=== PATIENT | female | born 1995 | race Caucasian/White ===

== ENCOUNTER 2018-01-23 15:27 | Inpatient (IN) | payer BC ==
--- NOTE | 2018-01-23 16:04 | ED ---
Psychiatric Complaint - HPI Summary HPI Summary: This patient is a 22 year old F presenting to [facility] after she was sent by a counselor at [facility] with a chief complaint of SI that has been worse today. Pt states that this has been happening for a while and that she is not on medication. She denies a plan for suicide but has bad thoughts when she looks at things. LNMP was about a month ago and she is not sexually active. - History Of Current Complaint Chief Complaint: [facility]entalHealth Time Seen by Provider: 01/23/18 15:35 Hx Obtained From: Patient Onset/Duration: Still Present, Worse Since Timing: Constant Severity Initially: Mild Severity Currently: Moderate Has Suicidal: Reports: Thoughts. Denies: With A Plan, Demonstrates Gesture - Allergies/Home Medications Allergies/Adverse Reactions: Allergies Allergy/AdvReac Type Severity Reaction Status Date / Time No Known Allergies Allergy Verified 01/23/18 16:02 Home Medications: Home Medications NK [No Home Medications Reported] 01/23/18 [History Confirmed 01/23/18] PMH/Surg Hx/FS Hx/Imm Hx Endocrine/Hematology History: Reports: Other Endocrine/Hematological Disorders - Eczema Denies: Hx Diabetes, Hx Thyroid Disease Cardiovascular History: Denies: Hx Auto Implanted Cardiovert Defib, Hx Congenital Heart Disease, Hx Coronary Artery Disease, Hx Deep Vein Thrombosis Respiratory History: Denies: Hx Chronic Obstructive Pulmonary Disease (COPD), Hx Lung Cancer, Hx Pleural Effusion, Hx Pneumonia History: Denies: Hx Acute Renal Failure, Hx Benign Prostatic Hyperplasia, Hx Chronic Renal Failure Infectious Disease History: No Infectious Disease History: Denies: Traveled Outside the [place] in Last 30 Days - Family History Known Family History: Negative: Respiratory Disease, Seizure Disorder - Social History Occupation: Student Alcohol Use: Rare Hx Substance Use: No Substance Use Type: Reports: None Hx Tobacco Use: No Smoking Status (MU): Never Smoked Tobacco Review of Systems Negative: Fever Positive: Other - SI All Other Systems Reviewed And Are Negative: Yes Physical Exam - Summary Physical Exam Summary: Appearance: Well-appearing, Well-nourished, lying in bed comfortably Skin: Warm, dry, no obvious rash Eyes: sclera anicteric, no conjunctival pallor ENT: mucous membranes moist, pharynx appears normal Neck: Supple, nontender Respiratory: Clear to auscultation, no signs of respiratory distress Cardiovascular: Normal S1, S2. No murmurs. Normal distal pulses in tibial and radial bilaterally. Abdomen: Soft, nontender, normal active bowel sounds present Musculoskeletal: Normal, Strength/ROM Intact Neurological: A&Ox3, awake and alert, mentation is normal, speech is fluent and appropriate Psychiatric: depressed affect Triage Information Reviewed: Yes Vital Signs On Initial Exam: Initial Vitals Temp Pulse Resp BP Pulse Ox 98.0 F 60 16 115/83 99 01/23/18 15:53 01/23/18 15:53 01/23/18 15:53 01/23/18 15:53 01/23/18 15:53 Vital Signs Reviewed: Yes Diagnostics - Vital Signs Vital Signs Temp Pulse Resp BP Pulse Ox 01/23/18 15:53 98.0 F 60 16 115/83 99 - Laboratory Result Diagrams: 01/23/18 16:16 01/23/18 16:16 Lab Statement: Any lab studies that have been ordered have been reviewed, and results considered in the medical decision making process. Course/Dx - Course Assessment/Plan: This patient is a 22 year old F presenting to [facility] after she was sent by a counselor at [facility] with a chief complaint of SI that has been worse today. Pt states that this has been happening for a while and that she is not on medication. She denies a plan for suicide but has bad thoughts when she looks at things. LNMP was about a month ago and she is not sexually active. Bloodwork obtained. After MHE by Dr. Márquez the patient will be a voluntary admit. The patient will be admitted for unspecified depressive disorder. The patient is agreeable with this plan. - Differential Dx/Clinical Impression Provider Diagnosis: Depressive disorder Discharge - Sign-Out/Discharge Documenting (check all that apply): Patient Departure - admitted All imaging exams completed and their final reports reviewed: No Studies - Discharge Plan Condition: Guarded Disposition: PSYCHIATRIC FACILITY[place] [place] Billing Disposition and Condition Condition: GUARDED Disposition: Psychiatric Facility [facility] [place] - Attestation Statements Document Initiated by Scribe: Yes Documenting Scribe: Salty Hong Provider For Whom Scribe is Documenting (Include Credential): Tomer Olmstead MD Scribe Attestation: Salty Angeles scribed for Tomer Olmstead MD on 01/24/18 at 0853. Scribe Documentation Reviewed: Yes Provider Attestation: The documentation as recorded by the scribe, Salty Hong accurately reflects the service I personally performed and the decisions made by me, Tomer Olmstead MD
[2018-01-23 16:43] LABS: ABS Basophils 0 10^3/ul (0-0.2); ABS Eosinophils 0 10^3/ul (0-0.6); ABS Lymphocytes 1.4 10^3/ul (1.0-4.8); ABS Monocytes 0.5 10^3/ul (0-0.8); ABS Neutrophils 4.3 10^3/ul (1.5-7.7); ABS Nucleated RBC 0 10^3/ul; Eosinophil % 0.8 % (0-6); Hematocrit 39 % (35-47); Hemoglobin 13.2 g/dl (12.0-16.0); Lymphocyte % 22.2 % (25-47); Mean Corpuscular HGB Conc 34 g/dl (31-36); Mean Corpuscular Hemoglobin 30 pg (27-31); Mean Corpuscular Volume 88 fL (80-97); Mean Platelet Volume 7.9 um3 (7.4-10.4); Nucleated Red Blood Cells % 0; Platelet Count 211 10^3/ul (150-450); Red Blood Count 4.38 10^6/ul (4.00-5.40); Red Cell Distribution Width 13 % (10.5-15); White Blood Count 6.3 10^3/ul (3.5-10.8)
[2018-01-23 17:05] LABS: EGFR Non-African American 75.9 (>60)
[2018-01-23] MEDS ORDERED: Acetaminophen TAB* 325 MG PO PRN (21:24)
[2018-01-23] MEDS ORDERED: Al Hydrox/Mg Hydrox/Simet LIQ* 30 ML UDC PO PRN (21:24)
[2018-01-23] MEDS ORDERED: LORazepam TAB(*) 1 MG PO PRN (21:25)
[2018-01-24] MEDS: Vitamin THERAPEUTIC TAB PO SCH (10:11)
[2018-01-24] MEDS ORDERED: hydrOXYzine HCL TAB* 25 MG PO PRN (18:10)
--- NOTE | 2018-01-24 18:36 | HP ---
H&P (Free Text) History and Physical: JUSTIFICATION FOR ADMISSION: Patient presented to emergency room with suicidal ideation and plan, worsening depression and irritability. He requires inpatient psychiatric admission in order to provide treatment and stabilization as he is a danger to himself. 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 Patient was admitted to inpatient unit for worsening of her anxiety symptoms including excessive worries, restlessness, tremors, palpitation and unable to function appropriately due to that. Patient reports her perfectionism makes her anxiety worse especially related to her academic performance. But reportedly patient has been caring less towards her studies, losing interest in things, isolating self, decrease in energy with feelings of worthlessness and worsening of her suicidal thoughts. Patient was worried about her safety at home hence approached counselor at [facility] and then presented to E.D for worsening of her symptoms. Patient has been compliant with her therapy on weekly to biweekly basis. Patient reportedly has been not finding interest in things that she used to enjoy in the past. Patient reports no manic symptoms. Patient reports no psychotic symptoms. Patient denied any suicidal or homicidal ideation on the unit. Patient continued to exhibit behavior that is in control following staffs redirection. PAST PSYCHIATRIC HISTORY: Patient has history of no inpatient psychiatric hospitalization. Patient has history of outpatient psychiatric treatment by a therapy for stress and anxiety since the beginning of college years but routinely since last spring. Patients was started on medications as needed for anxiety by a psychiatrist at [employer] this spring but did not report much improvement hence dropped out but continued with therapy. Patient has history of suicidal thoughts but no attempt or plan. Patient has history of no homicidal threats, no intent or attempt. Patient has history of no aggressive and agitated behavior when decompensates. No access to firearm reported. SUBSTANCE ABUSE HISTORY: Patient reports no substance abuse history. Urine toxicology was negative. PAST MEDICAL HISTORY: No active medical problems ALLERGIES: NKA FAMILY PSYCHIATRIC HISTORY: Patient has family history of depression and suicidal attempt in her grandmother. Patient reports other family members with depression but not formally diagnosed and treated. FAMILY/PSYCHOSOCIAL HISTORY: Patient currently lives with a room mate. Patient is single. Patient education level is currently magdaleno at [employer] in Biomedical Engineering. Patient was born in [place] then moved to [place] when she was a baby but most of her life was raised in [place] by her parents. Patient support system includes her family but do not feel close to her fiends. REVIEW OF SYSTEMS: Patients review of symptoms was negative for any physical complaint. Vitals were reviewed. Patients ED physical exam was reviewed which is grossly normal with no active medical problem. Appearance: Well-appearing, Well-nourished, lying in bed comfortably Skin: Warm, dry, no obvious rash Eyes: sclera anicteric, no conjunctival pallor ENT: mucous membranes moist, pharynx appears normal Neck: Supple, nontender Respiratory: Clear to auscultation, no signs of respiratory distress Cardiovascular: Normal S1, S2. No murmurs. Normal distal pulses in tibial and radial bilaterally. Abdomen: Soft, nontender, normal active bowel sounds present Musculoskeletal: Normal, Strength/ROM Intact Neurological: A&Ox3, awake and alert, mentation is normal, speech is fluent and appropriate MENTAL STATUS EXAMINATION: Appearance: appear stated age, calm and cooperative, making fair eye contact, fair hygiene, fair grooming Behavior: cooperative, in control Gait: normal Abnormal motor activity: none Speech: normal tone and volume, normal rate and rhythm Mood: "I feel worthless at times" Affect: depressed, but reactive Thought process: coherrent Thought Content: Suicidal/Homicidal ideation: denied at time of evaluation but feel unsafe at home with suicidal thoughts Delusions: none Obsessions: none Phobia: none Perceptual disturbance: none Attention: fair Orientation: grossly intact Concentration: fair Memory: fair Insight: fair Judgment: fair Impulse control: fair IMPRESSION: Patient with history of anxiety attacks and depression. Patient currently admitted due to worsening of her symptoms with sucidial thougths and was worried about her safety at home. Patient has also struggled with her perfectionism and has limited social [place] or support. Patient is a danger to self if discharged hence will be observed and stabilized on inpatient unit with medication adjustments and therapy. DIAGNOSES: Major Depression, Single episode; Anxiety Disorder unspecified PLAN: Admit to U on Q 15 min observation. Patient is full code. Patient is on voluntary admission status Integrate patient into the milieu individual and group psychotherapy MMPI and psychological consult with Dr. Wilson. Socal work consult for therapy and discharge planning Will hold family meeting with parents to increase Data base, if possible. Patient gave informed consent to start the following medications: Remeron was started at 15 mg PO QHS for sleep, depression and anxiety. Patient was also staretd on Hydroxyzine 50 mg Po Q6HRS PRN anxiety and depression. Will continue to monitor and f/u for improvement and side effects. Kelsea Rivera MD Attending Psychiatrist
[2018-01-24] MEDS: Mirtazapine TAB* 15 MG PO SCH (21:27)
[2018-01-25] MEDS: Vitamin THERAPEUTIC TAB PO SCH (10:27)
[2018-01-25] MEDS: Mirtazapine TAB* 15 MG PO SCH (21:41)
[2018-01-26] MEDS: Vitamin THERAPEUTIC TAB PO SCH (09:42)
--- NOTE | 2018-01-26 16:20 | PN ---
Subjective - Subjective Date of Service: 01/26/18 Service Type: 87459 Hosp care 15 min low complexity Subjective: Judith locke to be depressed and suicidal. Says she had suicidal thoughts this morning but no plan to act on that. Otherwise remains the same with regards to anxiety, sleep and appetite. Low profile on the unit and participating fine in unit activities, pleasant in interactions. Objective - Appearance Appearance: Healthy Appearing Dysmorphic Features: No Hygiene: Normal Grooming: Fairly Well Kept - Behavior Psychomotor Activities: Normal Exhibits Abnormal Movement: No - Attitude and Relatedness Attitude and Relatedness: Cooperative Eye Contact: Good - Speech Quality: Unpressured Latencies: Normal Quantity: Appropriate - Mood Patient's Decription of Mood: "Good" - Affect Observed Affect: Non-labile - Thought Process Patient's Thought Process: Coherent, Goal Directed Thought Content: Yes Passive Wish, No Suicidal Planning, No Homicidal Ideation, No Paranoid Ideation - Sensorium Experiencing Hallucinations: No, Sensorium is Clear Type of Hallucinations: Visual: No, Auditory: No, Command: No - Level of Consciousness Level of Consciousness: Alert Orientation: Yes Intact, Yes Orientated to Time, Yes Orientated to Place, Yes Orientated to Person - Impulse Control Impulse Control: Intact - Insight and Judgement Insight and Judgement: Fair - Group Participation Particating in Group Activities: Yes - Medication Management Medication Management Adherence: Yes Assessment - Assessment Merits Inpatient Hospitalization: For Immediate Safety, For Stabilization Clinical Impression: Still depressed, anxious and suicidal. Continue hospitalization. Plan - Plan Treatment Plan: Name: JUDITH GAITAN Birthdate: 1995 [id number] Continued Medication Management: Continue Outpt Medication Medications: Current Medications Acetaminophen (Tylenol Tab*) 650 mg PO Q4H PRN PRN Reason: PAIN or TEMP > 101 F Al Hydrox/Mg Hydrox/Simethicone (Maalox Plus*) 30 ml PO Q4H PRN PRN Reason: INDIGESTION Hydroxyzine HCl (Atarax Tab*) 25 mg PO Q6H PRN PRN Reason: ANXIETY Mirtazapine (Remeron Tab*) 15 mg PO BEDTIME [facility] Last Admin: 01/25/18 21:41 Dose: 15 mg Multivitamins (Theragran Tab*) 1 tab PO DAILY [facility] Last Admin: 01/26/18 09:42 Dose: Not Given - Discharge Plan Discharge Plan: Outpatient Follow Up Outpatient Program: [facility]
[2018-01-26] MEDS: Mirtazapine TAB* 15 MG PO SCH (21:43)
[2018-01-27] MEDS: Vitamin THERAPEUTIC TAB PO SCH (09:46)
--- NOTE | 2018-01-27 12:07 | PN ---
Subjective - Subjective Date of Service: 01/27/18 Service Type: 27810 Hosp care 25 min moderate complexity Subjective: Patient was seen by self, discussed with treatment team, chart was reviewed. Patient has been compliant with her medications, no reported side effects. Patient reports sleeping better and is able to think better and positive. Patient reported having a a moment of suicidal thought over the weekend and was able to distract easily. Patient reported some improvement in her depressive symptoms. Patient sleeping has improved. Patient eating has been fair. Patient was offered routine nutritional consult for dietary habit and advice but was not interested. Patient has been cooperative with staff. Patient behavior has been in control. Patient mood was less anxious but still dysphoric but reactive and reports improvement. Patient has been reporting no suicidal or homicidal ideation today. No psychotic symptoms of delusions or hallucinations. Objective - Appearance Appearance: Healthy Appearing Dysmorphic Features: No Hygiene: Normal Grooming: Fairly Well Kept - Behavior Psychomotor Activities: Normal Exhibits Abnormal Movement: No - Attitude and Relatedness Attitude and Relatedness: Cooperative Eye Contact: Fair - Speech Quality: Unpressured Latencies: Normal Quantity: Appropriate - Mood Patient's Decription of Mood: "better" - Affect Observed Affect: Depressed - but improving and more reactive Affect Consistent with: Dysphoria - Thought Process Patient's Thought Process: Coherent, Goal Directed Thought Content: No Passive Wish, No Suicidal Planning, No Homicidal Ideation, No Paranoid Ideation - Sensorium Type of Hallucinations: Visual: No, Auditory: No, Command: No - Level of Consciousness Level of Consciousness: Alert Orientation: Yes Intact, Yes Orientated to Time, Yes Orientated to Place, Yes Orientated to Person - Impulse Control Impulse Control: Intact - Insight and Judgement Insight and Judgement: Fair - Group Participation Particating in Group Activities: Yes - Medication Management Medication Management Adherence: Yes Assessment - Assessment Merits Inpatient Hospitalization: For Immediate Safety, For Stabilization, For Discharge Planning Inpatient DSM-V Dx: F32.9 Clinical Impression: Patient with history of anxiety attacks and depression. Patient currently admitted due to worsening of her symptoms with suicidal thoughts and was worried about her safety at home. Patient has also struggled with her perfectionism and anxiety triggering her symptoms. Patient has limited social [place]ne[place] or support. Patient is a danger to self if discharged hence will be observed and stabilized on inpatient unit with medication adjustments and therapy. Plan - Plan Treatment Plan: Name: ROGER GAITAN Birthdate: 1995 [id number] - Patient continues to be hospitalized due to recent suicidal thoughts with plan , anxiety and depression. - Patient's medications were adjusted after informed consent with continuation of Remeron at 15 mg PO QHS and Benadryl as needed for anxiety. - Patient will be monitored for improvement and side effects. Risk and benefits were discussed. - Patient was encouraged to continue his participation in the milieu, group and individual therapy. Medications: Current Medications Acetaminophen (Tylenol Tab*) 650 mg PO Q4H PRN PRN Reason: PAIN or TEMP > 101 F Al Hydrox/Mg Hydrox/Simethicone (Maalox Plus*) 30 ml PO Q4H PRN PRN Reason: INDIGESTION Hydroxyzine HCl (Atarax Tab*) 25 mg PO Q6H PRN PRN Reason: ANXIETY Mirtazapine (Remeron Tab*) 15 mg PO BEDTIME [facility] Last Admin: 01/26/18 21:43 Dose: 15 mg Multivitamins (Theragran Tab*) 1 tab PO DAILY [facility] Last Admin: 01/27/18 09:46 Dose: Not Given
[2018-01-27] MEDS: Mirtazapine TAB* 15 MG PO SCH (21:33)
[2018-01-28 08:43] VITALS: BP 113/67
[2018-01-28] MEDS: Vitamin THERAPEUTIC TAB PO SCH (10:40)
--- NOTE | 2018-01-28 13:31 | DS ---
Subjective - Subjective Service Types: 14[address] [facility] Day Mgmt simple under 30 min Discharge Date: 01/28/18 Subjective: JUSTIFICATION FOR ADMISSION: Patient presented to emergency room with suicidal ideation and plan, worsening depression and irritability. He requires inpatient psychiatric admission in order to provide treatment and stabilization as he is a danger to himself. 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 Patient was admitted to inpatient unit for worsening of her anxiety symptoms including excessive worries, restlessness, tremors, palpitation and unable to function appropriately due to that. Patient reports her perfectionism makes her anxiety worse especially related to her academic performance. But reportedly patient has been caring less towards her studies, losing interest in things, isolating self, decrease in energy with feelings of worthlessness and worsening of her suicidal thoughts. Patient was worried about her safety at home hence approached counselor at [facility] and then presented to [facility] for worsening of her symptoms. Patient has been compliant with her therapy on weekly to biweekly basis. Patient reportedly has been not finding interest in things that she used to enjoy in the past. Patient reports no manic symptoms. Patient reports no psychotic symptoms. Patient denied any suicidal or homicidal ideation on the unit. Patient continued to exhibit behavior that is in control following staffs redirection. PAST PSYCHIATRIC HISTORY: Patient has history of no inpatient psychiatric hospitalization. Patient has history of outpatient psychiatric treatment by a therapy for stress and anxiety since the beginning of college years but routinely since last spring. Patients was started on medications as needed for anxiety by a psychiatrist at [employer] this spring but did not report much improvement hence dropped out but continued with therapy. Patient has history of suicidal thoughts but no attempt or plan. Patient has history of no homicidal threats, no intent or attempt. Patient has history of no aggressive and agitated behavior when decompensates. No access to firearm reported. SUBSTANCE ABUSE HISTORY: Patient reports no substance abuse history. Urine toxicology was negative. PAST MEDICAL HISTORY: No active medical problems ALLERGIES: NKA FAMILY PSYCHIATRIC HISTORY: Patient has family history of depression and suicidal attempt in her grandmother. Patient reports other family members with depression but not formally diagnosed and treated. FAMILY/PSYCHOSOCIAL HISTORY: Patient currently lives with a room mate. Patient is single. Patient education level is currently magdaleno at [employer] in Biomedical Engineering. Patient was born in [place] then moved to [place] when she was a baby but most of her life was raised in [place] by her parents. Patient support system includes her family but do not feel close to her fiends. REVIEW OF SYSTEMS: Patients review of symptoms was negative for any physical complaint. Vitals were reviewed. Patients ED physical exam was reviewed which is grossly normal with no active medical problem. Appearance: Well-appearing, Well-nourished, lying in bed comfortably Skin: Warm, dry, no obvious rash Eyes: sclera anicteric, no conjunctival pallor ENT: mucous membranes moist, pharynx appears normal Neck: Supple, nontender Respiratory: Clear to auscultation, no signs of respiratory distress Cardiovascular: Normal S1, S2. No murmurs. Normal distal pulses in tibial and radial bilaterally. Abdomen: Soft, nontender, normal active bowel sounds present Musculoskeletal: Normal, Strength/ROM Intact Neurological: A&Ox3, awake and alert, mentation is normal, speech is fluent and appropriate MENTAL STATUS EXAMINATION ON ADMISSION: Appearance: appear stated age, calm and cooperative, making fair eye contact, fair hygiene, fair grooming Behavior: cooperative, in control Gait: normal Abnormal motor activity: none Speech: normal tone and volume, normal rate and rhythm Mood: "I feel worthless at times" Affect: depressed, but reactive Thought process: coherrent Thought Content: Suicidal/Homicidal ideation: denied at time of evaluation but feel unsafe at home with suicidal thoughts Delusions: none Obsessions: none Phobia: none Perceptual disturbance: none Attention: fair Orientation: grossly intact Concentration: fair Memory: fair Insight: fair Judgment: fair Impulse control: fair DIAGNOSES ON ADMISSION: Major Depression, Single episode; Anxiety Disorder unspecified DIAGNOSES ON DISCHARGE: Major Depression, Single episode; Anxiety Disorder unspecified Objective - Appearance Appearance: Healthy Appearing Dysmorphic Features: No Hygiene: Normal Grooming: Fairly Well Kept - Behavior Psychomotor Activities: Normal Exhibits Abnormal Movement: No - Attitude and Relatedness Attitude and Relatedness: Cooperative Eye Contact: Fair - Speech Quality: Unpressured Latencies: Normal Quantity: Appropriate - Mood Patient's Decription of Mood: "Fine" - Affect Observed Affect: Fair Affect Consistent with: Euthymia - Thought Process Patient's Thought Process: Coherent Thought Content: No Passive Wish, No Suicidal Planning, No Homicidal Ideation, No Paranoid Ideation - Sensorium Experiencing Hallucinations: No, Sensorium is Clear Type of Hallucinations: Visual: No, Auditory: No, Command: No - Level of Consciousness Level of Consciousness: Alert Orientation: Yes Intact, Yes Orientated to Time, Yes Orientated to Place, Yes Orientated to Person - Impulse Control Impulse Control: Intact - Insight and Judgement Insight and Judgement: Fair - Group Participation Particating in Group Activities: Yes - Medication Management Medication Management Adherence: Yes Treatment Course & Assessment Clinical Course & Impression: Patient is 22 y/o female with history of anxiety attacks and depression. Patient currently admitted due to worsening of her symptoms with suicidal thoughts and was worried about her safety at home. Patient has also struggled with her perfectionism and anxiety triggering her symptoms. Patient has limited social [place] or support. Patient was a danger to self if discharged hence was observed and stabilized on inpatient unit with medication adjustments and therapy. Patient was admitted to [facility] on Q 15 min observation on voluntary admission status. Patient was integrate into the milieu,individual and group psychotherapy. MMPI and psychological consult with Dr. Wilson. Patient gave informed consent to start Remeron at 15 mg PO QHS for sleep, depression and anxiety. Patient was also staretd on Hydroxyzine 50 mg Po Q6HRS PRN anxiety and depression. Patient was monitored and followed up for improvement and side effects. Patient contined to be depressed and suicidal in initial days of hospital stay. Patient had suicidal thoughts no plan to act on that. Patient remained the same with regards to anxiety, sleep and appetite. Patient kept low profile on the unit and was participating fine in unit activities, pleasant in interactions. Patient was compliant with her medications, no reported side effects. Patient was responding to treatment and reported improvement in sleep and was able to think better and positive. Patient reported improvement in her depressive symptoms and resolution of suicidal thoughts. Patient sleeping has improved. Patient eating was fair. Patient was cooperative with staff and was granted comfort room and computer access that she used appropriately. Patient behavior was in control. Patient mood was less anxious but less dysphoric and reactive. Patient's medications were continued Remeron at 15 mg PO QHS and Benadryl as needed for anxiety. Patient on the day of discharge was reporting better mood, no anxiety, much relaxed, positive in her thinking and attitude. Patient had set up some goals for herself outside the hospital including reducing load at the [place] and wanted to continue with outpatient treatment. Patient was reporting no suicidal or homicidal ideation today. No psychotic symptoms of delusions or hallucinations. Patient was not a danger to self and others and was caring for self. Patient was discussed with team and was discharged to mother with plan to f/u outpatient treatment. Merits Inpatient Hospitalization: No Clear for Discharge: Adequate Clinical Respons, Acceptable Safety Profile, Low Utility of Inpt Care Inpatient DSM-V Dx: F32.9 Discharge Planning - Discharge Planning Discharge Plan: Outpatient Follow Up Recommendations for Continuing Care: Medication Management, Psychotherapy Medications: Current Medications Mirtazapine (Remeron Tab*) 15 mg PO BEDTIME CHE #30 tab Last Admin: 01/27/18 21:33 Dose: 15 mg Discharge Planning: Prescriptions provided for discharge [x] Yes [] No Follow up care details as per social work arrangements. Patient response to discharge plan: [x] eager for discharge [] agreeable with discharge plan [] ambivalent about discharge [] disagrees with discharge today
--- NOTE | 2018-01-29 19:42 | CONS ---
PSYCHOLOGICAL REPORT: DATE OF CONSULT: 01/27/18 REASON FOR REFERRAL: Judith was referred for personality testing secondary to concerns regarding reported depression and anxiety and severity of symptoms. Concerns regarding lethality are also prominent clinical feature. TEST ADMINISTERED: Judith completed the [place] Multiphasic Personality Inventory-2 (MMPI-2) in a timely fashion and was given results in the context of family meeting including her mother. Judith was also seen by this bond underwriter in the context of cognitive behavioral group psychotherapy throughout her stay. 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 Although she describes good academic adjustment while there, she is not enjoying her time on campus. Although she identifies having a [place] of friends, she endorses feeling very much apart from them, mostly secondary to the academic riggers and time it takes to complete studies to her satisfaction. Judith describes experiencing suicidal rumination, which has been encroaching in the past few weeks with worsening anxiety symptoms consistent with excessive rumination and worry as well as physical symptoms and signs such as tremors and palpitations and feelings of restlessness. Her anxiety seems to stem from a very strong sense of perfectionism in regards to her academic success and she describes taking more than 20 credit hours semester consistently. She also cites poor sleep hygiene with characteristic of only getting 6 hours of sleep nightly with periods of getting less time than that as well. She denies any difficulties such as romantic disappointments or any other acute social issues other than encroaching feelings of social isolation and dissatisfaction with her current life while in [place]. BEHAVIORAL OBSERVATIONS: Judith presents with flat affect, but is attentive and participatory when called upon in the group context. She exhibits better variability in affect and individual conversation, but still remains flat as a baseline level. She expresses insight, but is reluctant to change any significant decision such as assuming the diminished case load and utilizing her time with different efficiencies. Judith expressed her primary interest in graduating in a timely fashion rather than reducing her volume of work and extending her time in [place]. She responded positively to discussion regarding achievement drive and perfectionism and how this can be a double bind in terms of function and attainment of goals. TEST RESULTS: Judith provides a valid protocol on this administration of the MMPI- 2 meaning that she responded to questions in an open and honest fashion, despite having very minor elevations on all 3 emotional duress scales ranging from T scores of 65 to T score of 70 on the FB scale. Positive prognostic indicators are moderate endorsements of emotional coping and self-esteem. Also a positive prognostic indication is minor elevation on the depression scale (T = 66) with more substantive elevations occurring on the anxiety index, the schizophrenia index, as well as the hypomania index (T = 80). She also has an elevation on the masculine- feminine scale. Persons with similar profiles are described as processing anxiety as the primary expression of negative emotion with concerns regarding social function and a sense of isolation in terms of her elevation on the schizophrenia scale. Normal people who are not psychotic who elevate the scale are describing feelings of alienation and being apart even when in the company of trusted friends and family. Ongoing clinical concern is the elevation on the hypomania scale. Judith identifies some soft indicators of possible effect of disturbance characterized by periods of increased productivity and goal-oriented behaviors. However, important caveat is her academic life is characterized by such acute periods of stress. Judith then describes having periods where she falls flat and feels like she cannot get work done. Although she expresses positive insights regarding need for better sleep hygiene, concerns are that she will continue on her current course secondary to her academic demands. IMPRESSION AND RECOMMENDATIONS: Judith impresses as likely to comply with outpatient recommendations and continuing with medications prescribed. Concerns are that she may feel overwhelmed secondary to time pressures and become noncompliant. Ongoing treatment should continue to assess for any signs of hypomania as well as continue to monitor for any lethality in the context of depressive or anxiety symptoms. Judith was very reassuring regarding lethality ; she was able to identify positive protective factors in regards to acting on suicidal impulse and to the contrary expresses positive prosocial goals and interest in a spontaneous fashion. Current concerns regarding lethality have been significantly diminished and Judith was eager to be discharged. She was compliant with unit routine and compliant with recommended medical interventions while here. Ongoing treatment should continue to assess for depressive symptoms as well as anxiety with current diagnostic interest being consistent with a major depressive disorder, moderate without psychosis with continuing to rule out for bipolar disorder, mixed. [id number]/[facility] #: [id number] [place]
== END 2018-01-28 13:20 | disposition home or self-care (01) | DRG 754 ==
LOC: ED 15:27 → BSU 20:53
PROVIDERS: ADMIT Psychiatry & Neurology Psychiatry; ATTEND Psychiatry & Neurology Psychiatry
DX: F32.9 Major depressive disorder, single episode, unspecified (principal); R45.851 Suicidal ideations; F41.9 Anxiety disorder, unspecified; Z81.8 Family history of other mental and behavioral disorders; Z23 Encounter for immunization
CPT/HCPCS: 36415; 80053; 80061; 80307; 80329; 83036; 84702; 85025; 90686; 99222; 99231; 99232; 99238; 99283; A9270-GY; G0480